=== PATIENT | male | born 2000 | race Two or more races ===

== ENCOUNTER 2025-05-15 11:46 | Inpatient (IN) ==
--- NOTE | 2025-05-15 11:58 | Emergency Department Note ---
Impression & Plan Depression with suicidal ideation ED Provider Note NAME: JANIA POND AGE: 24 SEX: M : 2000 ARRIVES VIA: [employer] INFORMANT: Patient, ED PROVIDER(S): Chi Nava MD CHIEF COMPLAINT: Mental wellness concern MEDICAL DECISION MAKING: Patient presents for the above. Blood work is obtained. Patient is cooperative. Patient is amenable to inpatient treatment. Patient is he medically cleared seen and evaluated by psych case management and the patient did have referrals made. Patient was signed out to Dr. Lomeli pending placement. Discussion w/ other healthcare providers: ED case management Prior /Outside records reviewed: none Differential diagnosis: Mood disorder, infection, hypoglycemia, electrolyte abnormalities, dehydration, medication side effect among others were considered. Diagnostics, as interpreted by me: ECG: None none Medical decision rules: None Imaging studies: None HPI: Patient presents due to concern for mental wellness concern. The patient reportedly does have some baseline depression that he does struggle with some days are "worse than others." Patient states that he had been drinking into Saturday and very early morning he gone to his grandmother's house and reportedly had gotten a gun and he did put a loaded rifle barrel in his mouth. The patient states that he had been thinking about harming himself. Patient reports that he did have a prior history of self-harm back in high school. He is not on any current medications and does not have any outpatient resources with regard to his mental illness. He denies tobacco or drug use. He states that his sleep and appetite have always been up and down but they have not been worse of late. He does admit to relationship and financial issues which may be contributory. He reports that he did start a new job recently which is going well. He does live with his fiance and does feel safe at home. No access to guns or weapons in his own home. He denies any HI or AVH. PAST MEDICAL HISTORY: Depression PAST SURGICAL HISTORY: No pertinent past surgical history SOCIAL HISTORY: See Below HOME MEDICATIONS: See Below ALLERGIES: See Below VITALS: See Below PHYSICAL EXAMINATION: GENERAL: NAD, non-toxic. EYE EXAM: Normal conjunctiva. PERRL, no anisocoria and EOM's grossly intact w/o pain. OROPHARYNX: Moist mucus membranes, grossly normal dentition. NECK: Trachea midline, no stridor. LUNGS: Clear to auscultation. Normal chest wall mechanics. HEART: NSR, no MRG. ABDOMEN: Abdomen soft, non-tender, no masses, no rebound or guarding. BACK: No CVA TTP. SKIN: No rashes and no bruising. UPPER EXTREMITIES: Upper extremities are grossly normal. LOWER EXTREMITIES: Grossly normal, no edema. NEURO EXAM: Awake and alert, follows commands, no obvious facial asymmetry, normal speech, moves all 4 extremities. Psych: Depressed mood, denies HI or AVH. Past Med/Surg History Problem List (Updated 05/16/25 @ 06:08 by Chi Nava MD) Depression with suicidal ideation (Acute) Social History Smoking Status: Never smoker Preferred Language: Kosovan Communication Ability: Effective Enrichment Director Required: No Beliefs That Will Affect Care: None Feels Safe at Home: Yes Gender Identity: Male Assistive Devices: Glasses Allergies Allergies Allergy/AdvReac Type Severity Reaction Status Date / Time No Known Allergies Allergy Unverified 05/15/25 18:31 Results & Data (ED) Vital Signs Vital Signs - 24 hr 05/15/25 11:55 05/15/25 11:55 05/15/25 14:25 Temperature 36.5 C 36.5 C Temperature Source Oral Oral Pulse Rate 77 Pulse Rate [Right Finger] 77 79 Respiratory Rate 18 18 18 Respiratory Effort / Characteristics Non-Labored Non-Labored Respiratory Depth Normal Normal Respiratory Pattern Regular Blood Pressure 133/77 Blood Pressure [Right Arm] 133/77 139/93 Blood Pressure Mean 95 Blood Pressure Mean [Right Arm] 95 108 Pulse Oximetry 99 99 100 Oxygen Delivery Method Room Air Room Air Room Air Sepsis Recent Fever Within 48 Hours No Sepsis New/Unexplained Change in Mental Status No Sepsis Action Taken by Nursing No Action Required 05/15/25 16:51 Temperature Temperature Source Pulse Rate Pulse Rate [Right Finger] 76 Respiratory Rate 18 Respiratory Effort / Characteristics Respiratory Depth Respiratory Pattern Blood Pressure Blood Pressure [Right Arm] 154/82 H Blood Pressure Mean Blood Pressure Mean [Right Arm] 106 Pulse Oximetry 100 Oxygen Delivery Method Room Air Sepsis Recent Fever Within 48 Hours Sepsis New/Unexplained Change in Mental Status Sepsis Action Taken by Intermediate Medications Current Medication List: was personally reviewed by me Laboratory Data Attestation: I reviewed the patient's lab results. 05/15/25 12:02 05/15/25 12:02 Lab Results 05/15/25 05/15/25 05/15/25 Range/Units 12:02 12:07 14:22 WBC 9.28 (4.8-10.8) K/ul RBC 5.99 (4.70-6.10) M/uL Hgb 18.1 H (14.0-18.0) g/dl Hct 54.5 H (42.0-52.0) % MCV 91.0 (80.0-100.0) fL MCH 30.2 (25.0-34.0) pg MCHC 33.2 (32.0-36.0) g/dL RDW Std Deviation 45.3 (36.4-46.3) fL RDW Coeff of Yessy 13.7 (11.5-14.5) % Plt Count 397 (130-400) K/uL MPV 9.8 (9.4-12.4) fL Immature Gran % (Auto) 0.3 % Neut % (Auto) 73.0 % Lymph % (Auto) 17.3 % Spencer % (Auto) 6.1 % Eos % (Auto) 2.4 % Baso % (Auto) 0.9 % Neut # (Auto) 6.77 H (1.40-6.50) K/uL Lymph # (Auto) 1.61 (1.20-3.40) K/uL Spencer # (Auto) 0.57 (0.11-0.59) K/uL Eos # (Auto) 0.22 (0.00-0.50) K/uL Baso # (Auto) 0.08 (0.00-0.20) K/uL Immature Gran # (Auto) 0.03 (0.01-0.20) K/uL Sodium 140 (136-145) mmol/L Potassium 4.3 (3.5-5.1) mmol/L Chloride 105 (98-107) mmol/L Carbon Dioxide 29 (21-32) mmol/L Anion Gap 6 (3-11) BUN 12 (6-23) mg/dl Creatinine 0.91 (0.6-1.4) mg/dl Est Cr Clr Drug Dosing 136.6 ml/min eGFR 121.45 BUN/Creatinine Ratio 13.2 (10-20) Glucose 91 (70-99(Fasting)) mg/dl Calcium 9.7 (8.6-10.3) mg/dl Total Bilirubin 0.6 (0.2-1.0) mg/dl AST 17 (13-39) U/L ALT 16 (7-52) U/L Alkaline Phosphatase 74 (34-104) U/L Total Protein 8.1 (6.0-8.3) gm/dl Albumin 5.1 H (3.4-5.0) gm/dl Globulin 3.0 (2.5-4.0) gm/dl Albumin/Globulin Ratio 1.7 (0.9-2) TSH 0.933 (0.300-4.500) uIu/ml Urine Color Yellow Urine Appearance Clear (Clear) Urine pH 5.5 (4.5-7.5) Ur Specific [place] 1.005 (1.000-1.030) Urine Protein Negative (Negative) Urine Glucose (UA) Negative (Negative) Urine Ketones Negative (Negative) Urine Blood Negative (Negative) Urine Nitrite Negative (Negative) Urine Bilirubin Negative (Negative) Urine Urobilinogen Negative (Negative) Ur Leukocyte Esterase Negative (Negative) Urine Comment Salicylates < 3.0 L (3.0-30) mg/dl Urine Opiates Screen Neg (Neg) Ur Methadone, Qual Neg (Neg) Urine Fentanyl Screen Neg (Neg) Acetaminophen < 3 L (10-30) ug/ml Urine Barbiturates Neg (Neg) Ur Phencyclidine (PCP) Neg (Neg) U Amphetamin/Meth Scrn Neg (Neg) MDMA (Ecstasy) Screen Neg (Neg) U Benzodiazepines Scrn Neg (Neg) Ur Cocaine Metabolite Neg (Neg) U Marijuana (THC) Screen Neg (Neg) Ethyl Alcohol mg/dL < 10.0 (<10.0) mg/dl SARS-CoV-2, RNA, NAAT NEGATIVE (NEGATIVE) Discharge Plan Visit Data Chief Complaint: Mental Health Evaluation Stated Complaint: [facility] ED Provider: Chi Nava Discharge Problem: Depression with suicidal ideation Patient Disposition: Admitted As Inpatient Condition: Good Discharge Instructions Interventions: ED Discharge Assessment Last Done: 05/15/25 18:13
[2025-05-15 12:22] LABS: Hematocrit (blood only) 54.5 % (42.0-52.0); Hemoglobin 18.1 g/dl (14.0-18.0); Immature Granulocytes # (auto) 0.03 K/uL (0.01-0.20); Immature Granulocytes % (auto) 0.3 %; Mean Corpuscular Hemoglobin 30.2 pg (25.0-34.0); Mean Corpuscular Volume 91.0 fL (80.0-100.0); Platelet Count 397 K/uL (130-400); RDW Standard Deviation 45.3 fL (36.4-46.3); Red Blood Count 5.99 M/uL (4.70-6.10); White Blood Count 9.28 K/ul (4.8-10.8)
[2025-05-15 12:40] LABS: Alanine Aminotransferase 16.0 U/L (7-52); Albumin Globulin Ratio 1.7 (0.9-2); Albumin Level 5.1 gm/dl (3.4-5.0); Alkaline Phosphatase 74.0 U/L (34-104); Anion Gap 6.0 (3-11); Bilirubin,Total 0.6 mg/dl (0.2-1.0); Blood Urea Nitrogen 12.0 mg/dl (6-23); Calcium 9.7 mg/dl (8.6-10.3); Carbon Dioxide 29.0 mmol/L (21-32); Chloride 105.0 mmol/L (98-107); Creatinine Clr Calc Pharmacy 136.6 ml/min; Globulin 3.0 gm/dl (2.5-4.0); Glucose 91.0 mg/dl (70-99(Fasting)); Potassium 4.3 mmol/L (3.5-5.1); Sodium 140.0 mmol/L (136-145); Total Protein 8.1 gm/dl (6.0-8.3)
[2025-05-15 12:49] LABS: Acetaminophen < 3 ug/ml (10-30); Salicylate < 3.0 mg/dl (3.0-30)
[2025-05-15 12:54] LABS: Thyroid Stimulating Hormone 0.933 uIu/ml (0.300-4.500)
[2025-05-15 14:33] LABS: Appearance Urine Clear (Clear); Glucose Urine UA Negative (Negative)
--- NOTE | 2025-05-15 15:06 | Emergency Department Note ---
ED Visit Note I assumed care at the change of shift. The patient had been medically cleared. He was a voluntary psychiatric admission. He had presented with suicidal ideation. A bed search was underway. Patient was seen by 3 S[facility] our psychiatry services here at [facility]. He has been accepted to their floor. The appropriate paperwork was completed and signed. He will be admitted to the psychiatric services voluntarily. .
[2025-05-15 15:18] LABS: Amphetamines+Metham, Urine Neg (Neg); MDMA (Ecstacy), Urine Neg (Neg); Marijuana, Urine Neg (Neg)
[2025-05-15] MEDS ORDERED: MAGNESIUM HYDROXIDE SUSP 30 ML UDC PO PRN (18:31)
[2025-05-15] MEDS ORDERED: BISMUTH SUBSALICYLATE 262 MG CHEW PO PRN (18:31)
[2025-05-15] MEDS ORDERED: SODIUM CHLORIDE 0.65% NA SOLN 45 ML (OCEAN) PRN (18:31)
[2025-05-15] MEDS ORDERED: ACETAMINOPHEN 325 MG TAB PO PRN (18:31)
[2025-05-15] MEDS ORDERED: ALUMINUM/MAGNESIUM SUSP 30 ML UDC PO PRN (18:31)
--- NOTE | 2025-05-16 08:39 | History & Physical ---
Date of Service May 16, 2025 Impression / Recommendations Impression JANIA POND is a 24-year-old man who currently lives in [place] with his fiance, step-child (3) and step-child's father has a history of depression, anxiety, self-harm, and was admitted on 05/15/25 18:27 on a 201 voluntary commitment for interrupted suicide attempt via gun. Diagnostically consistent with major depressive disorder with suicidal ideation following recent interrupted suicide attempt, likely borderline personality disorder and substance use involving alcohol and nicotine in the context of relationship stressors and compulsive lying behaviors and previous excessive pornography use. Discussed medication treatment options in detail. Discussed risks, benefits and alternatives. Patient would like to start and consented to Wellbutrin for depression and nicotine use disorder. Reviewed side effects including but not limited to: insomnia, decreased appetite, lowered seizure threshold. Psychoeducation provided regarding mood disorders and borderline personality disorder. Discharge planning to include psychotherapy referral and consider case management referral for financial resources and support and primary care follow- up for ongoing eczema management as well as possible sleep study evaluation for sleep apnea given his report of chronic restless sleep . Overall I spent a total of 85 minutes for this admission including review of chart records, review of labwork, direct evaluation of the patient, counseling the patient, ordering medication, risk assessment, discussion with the psychiatric liason RN and documentation in the electronic health record. 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, unspecified: (4) Impulsiveness: (5) Eczema: Plan 05/16/2025: The patient was admitted to the [facility] ([facility]) on q15 min checks (behavioral with suicide precautions) for safety. The patient will participate in group, recreational, and milieu therapies and will be offered additional individual and family sessions as clinically appropriate. -Start Wellbutrin 150mg daily -Provided with symptom questionnaires: PHQ, MIHIR, MDQ, Rodney BPD Inventory Assets Strengths: supportive relationships, willing to get treatment Needs: safety and stabilization, medication adjustment, additional coping skills, increased outpatient services Suicide Risk Level Suicide Risk Level: High-Moderate (q15 min suicide checks) (interrupted suicide attempt but SI lessening and feels safe in the hospital and feels able to ask for support) Risk Factors Assessment Male: Yes Do You Have Access To A Gun?: Yes (had accessed guns at grandmother's home, need to confirm now secured) Health Problems: No Mental Health Diagnoses: Yes Substance Use Disorders: No Previous Attempt: Yes Family History of Suicide: No Previous Psychiatric Hospitalization: No Hopelessness: Yes Protective Factors Assessment Responsible for Young Children: Yes Employed: Yes Stable Relationships: Yes Supportive Family: Yes Good Rapport with Provider: Yes Psychiatric History Identifying Data JANIA POND is a 24-year-old man who currently lives in [place] with his fiance, step-child (3) and step-child's father has a history of depression, anxiety, self-harm, and was admitted on 05/15/25 18:27 on a 201 voluntary commitment for interrupted suicide attempt via gun. Chief Complaint "I want to live this life as best as I can but how we make it out of this is tricky". History of Present Illness Jania presents for psychiatric admission for worsening depression and interrupted suicide attempt of shooting himself with a gun in the context of multiple psychosocial stressors including relationship and financial issues. He drove to his grandmothers home to gain access to guns and discharged the gun to ensure it was working before placing it in his mouth. His grandmother found him with the gun in his mouth and called police. [facility] due to endangerment of others from setting off the gun before attempting to use it on himself. He was then [facility] for further evaluation of his suicidality. He reports struggling with mood fluctuations throughout his life describing periods where he feels "15 out of 10 happy" and "perfect" followed by crashes where he becomes "really low". These mood shifts can occur within the same day and are often triggered by external events particularly relationship conflicts. 2 days prior to admission Jania experienced a significant low mood following ongoing relationship problems with his fiance. He describes feeling "numb" the morning of the incident of the interrupted attempt and has limited memory of the events recalling only "flashes" of driving to his grandmother's house. He recalls "I had gotten into a pretty low place". He notes it's all "a bit of a blur" and "the only thing I vividly remember is loading the gun". He vividly remembers loading a gun and was found by his grandmother with a gun in his mouth. He denies that alcohol contributed to his memory gaps noting he had consumed 3 tallboy beers the night before but it had been 9 hours without drinking before the incident occurred. Jania reports significant relationship to stress as the primary precipitant to this crisis. He describes lying to his fiance about his past, including previous relationships and sexual encounters, as well as struggling with what he characterizes as a "very bad porn addiction" in the past prior to starting his relationship with her. He expresses genuine love for his fiance and her 3-year-old child but reports constant worry that she will leave him. He describes himself as a "compulsive" or "pathological liar" and acknowledges having "misconstrued understanding" of healthy sexual relationships due to his past pornography use. He notes "I've been making poor decisions" in regards to his relationship and he states he'd lied about things in his past before they started dating. When she caught him in these lies he "spiraled". He deeply loves his partner and yet "I wanted to be with her so bad I didn't want her to know about everything in my past". He wants to have a healthy relationship but often gets caught up in worries that she'll leave him. 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 He is also now acquired felony charges including operation of a firearm in unoccupied residence, reckless endangerment due to setting off the gun and criminal mischief from breaking into his grandmother's gun safe. He notes he his fiance and her child were already struggling before this crisis and he suspects now will be worse. This does cause some hopelessness and helplessness but he wants to continue living and to move forward. He acknowledges feeling overwhelmed by his current circumstances. He identifies target symptoms as: working on his "compulsive liar, pathological liar" and "very bad issues with lying" and "spin a story that's better for me", that's something he wants to work on and improve for the sake of his relationship and "I want to figure out what my problems are with sex and the idea of it" and "what's wrong with my brain, I struggle with it a lot, the self- doubt, that spirals pretty bad". He has periods of depression but it's pretty "moment to moment" in terms of his mood. He's always struggled to wake up in the morning and has always struggled with sleep. He can fall asleep easily but always feels exhausted when he wakes up. He notes "I don't want to be right now but I've also come to realize what I've done and I know the process that it's going to be and it's a hard pill to swallow". He is not currently prescribed any psychiatric medications. 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 No history or current history psychosis, PTSD, OCD. History of restrictive eating in the past, self-harm via punching himself in highschool-last about 5 years ago. Previous struggled with porn addiction. Past Psychiatric History Current Psychiatric Diagnosis: unspecified depression with mood lability Outpatient Services: none Previous Psych Admissions: none Do You Have Access To A Gun?: Yes (had accessed guns at grandmother's home, need to confirm now secured) History of Previous Suicide Attempt: Yes Describe Attempts in the Past: near overdose of prescribed medication in highschool, spit them out Past Medication Trials: Zoloft (100mg)-stopped after 6 months of taking it, never found much benefit Past Head Trauma/Neuro History History of Concussion/Seizure: No Allergies Allergy/AdvReac Type Severity Reaction Status Date / Time No Known Allergies Allergy Unverified 05/15/25 18:31 Family History Family History of: Depression (sister) and Other-List under Comment (sister with ADHD, sister with self-harm) Alcohol History Hx of Alcohol Use Over the Past 12 Months: Yes (couple times per month) AUDIT Total Score: 4 Smoking Use Have You Smoked or Used Tobacco Products in the Last 30 Days: No Smoking Status: Current every day smoker (nicotine pouches 6mg (5- 10 a day)) Substance History Hx of Prescription Med Misuse Over the Past 12 Months: No Hx of Over the Counter Med Misuse Over the Past 12 Months: No Hx of Inhalent Misuse Over the Past 12 Months: No Hx of Organic Substance Use Over the Past 12 Months: No Hx of Illegal Substances/Street Drug Use Over Past 12 Months: No Problems as a Result of Past Substance Use: None Identified Personal History Living Arrangements: Apartment Highest Grade Completed: High School Graduate Employment Status: Unemployed (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 Other Number Of Children: step-child age 3 Beliefs That Will Affect Care: None Current Legal Problems: Yes (charge of operation of a firearm, criminal mischief for breaking into gun s) Hx Legal Problems: No Hx Traumatic Life Events: No Patient History Social History Smoking Status: Current every day smoker (nicotine pouches 6mg (5- 10 a day)) Preferred Language: Upper Sorbian Communication Ability: Effective Tapper Helper Required: No Beliefs That Will Affect Care: None Feels Safe at Home: Yes Gender Identity: Male Assistive Devices: Glasses Review of Systems Review of Systems: All systems reviewed & are unremarkable except as noted in HPI & below (itchy from eczema, knee soreness) Physical Exam Psychiatric: Orientation: alert and oriented x 3 Apperance: appropriately dressed and appropriately groomed Eye Contact: good eye contact Motor Behavior: no abnormal motor movements Speech: normal rate/rhythm/volume of speech Affect: + depressed affect and + anxious affect Mood: + depressed mood and + anxious mood Thought Process: goal directed thought process Thought Content: reality based without delusions Suicidal Thoughts: denies suicidal plan (but interrupted suicide attempt from using gun) and denies suicidal intent; + reports suicidal thoughts (intermittent) Homicidal Thoughts: denies homicidal thoughts Hallucinations: no auditory hallucinations and no visual hallucinations Cognition: recent memory grossly intact, remote memory grossly intact, attention grossly intact and language grossly intact Estimated Intelligence: consistent with education level Insight: + fair insight Judgment: + fair judgement Vital Signs (Past 24 Hours): Last Vital Signs Temp 37.4 C 05/16/25 06:00 Pulse 72 05/16/25 06:00 Resp 18 05/16/25 06:00 BP 118/76 05/16/25 06:00 Pulse Ox 98 05/16/25 06:00 O2 Del Method Room Air 05/16/25 06:00 Exam Statement: A physical exam was performed in the ED by Dr. Nava for the purposes of medical clearance. I accept that physical as correct and adequate for the purposes of the inpatient physical exam. Results & Data ([facility]) Laboratory Results Laboratory Results - last 24 hr 05/15/25 05/15/25 05/15/25 12:02 12:07 14:22 WBC 9.28 RBC 5.99 Hgb 18.1 H Hct 54.5 H MCV 91.0 MCH 30.2 MCHC 33.2 RDW Std Deviation 45.3 RDW Coeff of Yessy 13.7 Plt Count 397 MPV 9.8 Immature Gran % (Auto) 0.3 Neut % (Auto) 73.0 Lymph % (Auto) 17.3 Sully % (Auto) 6.1 Eos % (Auto) 2.4 Baso % (Auto) 0.9 Neut # (Auto) 6.77 H Lymph # (Auto) 1.61 Sully # (Auto) 0.57 Eos # (Auto) 0.22 Baso # (Auto) 0.08 Immature Gran # (Auto) 0.03 Sodium 140 Potassium 4.3 Chloride 105 Carbon Dioxide 29 Anion Gap 6 BUN 12 Creatinine 0.91 Est Cr Clr Drug Dosing 136.6 eGFR 121.45 BUN/Creatinine Ratio 13.2 Glucose 91 Calcium 9.7 Total Bilirubin 0.6 AST 17 ALT 16 Alkaline Phosphatase 74 Total Protein 8.1 Albumin 5.1 H Globulin 3.0 Albumin/Globulin Ratio 1.7 TSH 0.933 Urine Color Yellow Urine Appearance Clear Urine pH 5.5 Ur Specific [place] 1.005 Urine Protein Negative Urine Glucose (UA) Negative Urine Ketones Negative Urine Blood Negative Urine Nitrite Negative Urine Bilirubin Negative Urine Urobilinogen Negative Ur Leukocyte Esterase Negative Urine Comment Salicylates < 3.0 L Urine Opiates Screen Neg Ur Methadone, Qual Neg Urine Fentanyl Screen Neg Acetaminophen < 3 L Urine Barbiturates Neg Ur Phencyclidine (PCP) Neg U Amphetamin/Meth Scrn Neg MDMA (Ecstasy) Screen Neg U Benzodiazepines Scrn Neg Ur Cocaine Metabolite Neg U Marijuana (THC) Screen Neg Ethyl Alcohol mg/dL < 10.0 SARS-CoV-2, RNA, NAAT NEGATIVE Current Inpatient Medications Current Inpatient Medications: Current Inpatient Medications Acetaminophen (Acetaminophen 325 Mg Tab) 650 mg PO Q4H PRN PRN Reason: Headache or Minor Fever Stop: 06/14/25 18:30 Al Hydrox/Mg Hydrox/Simethicone (Aluminum/Magnesium Susp 30 Ml Udc) 30 ml PO Q4H PRN PRN Reason: GI Upset Stop: 06/14/25 18:30 Bismuth Subsalicylate (Bismuth Subsalicylate 262 Mg Chew) 2 tab PO Q30M PRN PRN Reason: Loose Stool/Diarrhea Stop: 06/14/25 18:30 Hydroxyzine HCl (Hydroxyzine Hcl 25 Mg Tab) 50 mg PO HSZ PRN PRN Reason: Insomnia Stop: 06/14/25 18:30 Hydroxyzine HCl (Hydroxyzine Hcl 25 Mg Tab) 25 mg PO Q4H PRN PRN Reason: Anxiety Stop: 06/14/25 18:30 Magnesium Hydroxide (Magnesium Hydroxide Susp 30 Ml Udc) 30 ml PO DAILY PRN PRN Reason: Constipation Stop: 06/14/25 18:30 Sodium Chloride (Sodium Chloride 0.65% Na Soln 45 Ml ([place])) 1 - 2 sprays NA PRN PRN PRN Reason: Nasal Dryness/Congestion Stop: 06/14/25 18:30
[2025-05-16] MEDS ORDERED: diphenhydrAMINE 2%/ZINC 0.1% CREAM 28.4GM TUBE EXT PRN (11:10)
[2025-05-16] MEDS: NICOTINE 21 MG/24 HR TDSY TD SCH (11:31)
[2025-05-16] MEDS: EUCERIN CR 120 GM JAR EXT PRN (12:00)
[2025-05-16] MEDS: REMOVE NICODERM PATCH SCH (21:14)
[2025-05-17] MEDS: NICOTINE POLACRILEX 2 MG GUM MT PRN (06:27)
--- NOTE | 2025-05-17 08:48 | Psychiatric Progress Note ---
Date of Service May 17, 2025 Impression / Recommendations Impression JANIA POND is a 24-year-old man who currently lives in [place] with his fiance, step-child (3) and step-child's father has a history of depression, anxiety, self-harm, and was admitted on 05/15/25 18:27 on a 201 voluntary commitment for interrupted suicide attempt via gun. Diagnostically consistent with major depressive disorder with suicidal ideation following recent interrupted suicide attempt, likely borderline personality disorder and substance use involving alcohol and nicotine in the context of relationship stressors and compulsive lying behaviors and previous excessive pornography use. A: Ongoing depression and anxiety but feels a little bit more energized from the Wellbutrin. Discussed medication treatment options and he consents to trial of clonidine as off-label use for impulsivity, sleep, anxiety. Reviewed side effects including but not limited to: sedation, low BP, syncope. Provided psychoeducation about BPD and DBT. Symptom questionnaires reviewed and notable for positive Rodney, PHQ-9 score of 17, MIHIR-7 score of: 16. He consents to and would like me to provide a letter stating he is hospitalized and diagnosis to the court in effort to have his hearing rescheduled due to his need for ongoing psychiatric hospitalization. Overall, I spent a total of 35 minutes on this case including meeting with the patient, reviewing the chart, nursing report, multidisciplinary team meeting, orders, and documentation. 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 The patient will participate in group, recreational, and milieu therapies and will be offered additional individual and family sessions as clinically appropriate. -Start Wellbutrin 150mg daily -Provided with symptom questionnaires: PHQ, MIHIR, MDQ, Rodney BPD Inventory Assets Strengths: supportive relationships, willing to get treatment Needs: safety and stabilization, medication adjustment, additional coping skills, increased outpatient services Suicide Risk Level Suicide Risk Level: High-Moderate (q15 min suicide checks) (interrupted suicide attempt but SI lessening and feels safe in the hospital and feels able to ask for support) Risk Factors Assessment Male: Yes Do You Have Access To A Gun?: No Health Problems: No Mental Health Diagnoses: Yes Substance Use Disorders: No Previous Attempt: Yes Family History of Suicide: No Previous Psychiatric Hospitalization: No Hopelessness: Yes Protective Factors Assessment Responsible for Young Children: Yes Employed: Yes Stable Relationships: Yes Supportive Family: Yes Good Rapport with Provider: Yes Interval History Identifying Information JANIA POND is a 24-year-old man who currently lives in [place] with his fiance, step-child (3) and step-child's father has a history of depression, anxiety, self-harm, and was admitted on 05/15/25 18:27 on a 201 voluntary commitment for interrupted suicide attempt via gun. Chief Complaint "Doing alright". Review of Systems Sleep Information Total Hours of Sleep: 6.25 Meal Information Percent Meal Consumed - Breakfast: 100 Percent Meal Consumed - Lunch: 100 Percent Meal Consumed - Dinner: 100 Subjective Subjective Patient was seen & assessed and interval progress reviewed with treatment team. Attending groups and participating. Today reports his mood is "alright" but has periods of intense sadness in missing his fiance and step-child. He reflects on the suicide attempt being impulsive despite him joking earlier in the month about attempting by using a gun. He feels that was part of his dark humor and continues to feel the attempt was impulsive. Tolerating Wellbutrin so far, no increased anxiety. Reviewed symptom questionnaires and discussed BPD. Physical Exam Psychiatric Orientation: alert and oriented x 3 Apperance: appropriately dressed and appropriately groomed Eye Contact: good eye contact Motor Behavior: no abnormal motor movements Speech: normal rate/rhythm/volume of speech Affect: + depressed affect Mood: + depressed mood and + anxious mood Thought Process: goal directed thought process Thought Content: reality based without delusions Suicidal Thoughts: denies suicidal plan (but interrupted suicide attempt from using gun) and denies suicidal intent; + reports suicidal thoughts (intermittent) Homicidal Thoughts: denies homicidal thoughts Hallucinations: no auditory hallucinations and no visual hallucinations Cognition: recent memory grossly intact, remote memory grossly intact, attention grossly intact and language grossly intact Estimated Intelligence: consistent with education level Insight: + fair insight Judgment: + fair judgement Vital Signs (Past 24 Hours) Last Vital Signs Temp 36.4 C 05/17/25 06:00 Pulse 62 10/13/25 06:25 Resp 18 05/17/25 06:00 BP 117/84 05/17/25 06:25 Pulse Ox 96 05/17/25 06:00 O2 Del Method Room Air 05/17/25 06:00 Results & Data ([facility]) Current Inpatient Medications Current Inpatient Medications: Current Inpatient Medications Acetaminophen (Acetaminophen 325 Mg Tab) 650 mg PO Q4H PRN PRN Reason: Headache or Minor Fever Stop: 06/14/25 18:30 Al Hydrox/Mg Hydrox/Simethicone (Aluminum/Magnesium Susp 30 Ml Udc) 30 ml PO Q4H PRN PRN Reason: GI Upset Stop: 06/14/25 18:30 Bismuth Subsalicylate (Bismuth Subsalicylate 262 Mg Chew) 2 tab PO Q30M PRN PRN Reason: Loose Stool/Diarrhea Stop: 06/14/25 18:30 Bupropion HCl (Bupropion Xl 150 Mg Tabcr) 150 mg PO QAM [facility] Stop: 06/15/25 11:14 Last Admin: 05/17/25 08:34 Dose: 150 mg Hydroxyzine HCl (Hydroxyzine Hcl 25 Mg Tab) 50 mg PO HSZ PRN PRN Reason: Insomnia Stop: 06/14/25 18:30 Hydroxyzine HCl (Hydroxyzine Hcl 25 Mg Tab) 25 mg PO Q4H PRN PRN Reason: Anxiety Stop: 06/14/25 18:30 Magnesium Hydroxide (Magnesium Hydroxide Susp 30 Ml Udc) 30 ml PO DAILY PRN PRN Reason: Constipation Stop: 06/14/25 18:30 Miscellaneous (Remove Nicoderm Patch) 1 each N/A DAILY@2100 [facility] Stop: 06/15/25 20:59 Last Admin: 05/16/25 21:14 Dose: Not Given Multi-Ingredient Cream (Eucerin Cr 120 Gm Jar) 1 appln EXT TID PRN PRN Reason: eczema Stop: 06/15/25 11:09 Last Admin: 05/16/25 22:28 Dose: 1 appln Nicotine (Nicotine 21 Mg/24 Hr Tdsy) 1 patch TD QAM [facility] Stop: 06/15/25 11:29 Last Admin: 05/17/25 08:35 Dose: Not Given Nicotine Polacrilex (Nicotine Polacrilex 2 Mg Gum) 1 piece MT Q2H PRN PRN Reason: nicotine cravings Stop: 06/15/25 11:15 Last Admin: 05/17/25 06:27 Dose: 1 piece Sodium Chloride (Sodium Chloride 0.65% Na Soln 45 Ml ([place])) 1 - 2 sprays NA PRN PRN PRN Reason: Nasal Dryness/Congestion Stop: 06/14/25 18:30 Zinc Acetate/Diphenhydramine (Diphenhydramine 2%/Zinc 0.1% Cream 28.4gm Tube) 1 appln EXT BID PRN PRN Reason: itchiness Stop: 06/15/25 11:09
[2025-05-17] MEDS ORDERED: REMOVE NICODERM PATCH SCH (08:59)
--- NOTE | 2025-05-18 08:46 | Psychiatric Progress Note ---
Date of Service May 18, 2025 Impression / Recommendations Impression JANIA POND is a 24-year-old man who currently lives in [place] with his fiance, step-child (3) and step-child's father has a history of depression, anxiety, self-harm, and was admitted on 05/15/25 18:27 on a 201 voluntary commitment for interrupted suicide attempt via gun. Diagnostically consistent with major depressive disorder with suicidal ideation following recent interrupted suicide attempt, likely borderline personality disorder and substance use involving alcohol and nicotine in the context of relationship stressors and compulsive lying behaviors and previous excessive pornography use. A: Ongoing depression and anxiety but mood improving. Reflected on role of his self-hatred and low self worth on his near suicide attempt. Ongoing stress from scheduled court hearing tomorrow, he is hopeful public relations manager can waive his appearance. He'd like to continue with the medications at the current doses, likes the current treatment plan. Overall, I spent a total of 38 minutes on this case including meeting with the patient, reviewing the chart, nursing report, multidisciplinary team meeting, orders, and documentation. 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 The patient will participate in group, recreational, and milieu therapies and will be offered additional individual and family sessions as clinically appropriate. -Start Wellbutrin 150mg daily -Provided with symptom questionnaires: PHQ, MIHIR, MDQ, Rodney BPD Inventory Assets Strengths: supportive relationships, willing to get treatment Needs: safety and stabilization, medication adjustment, additional coping skills, increased outpatient services Suicide Risk Level Suicide Risk Level: High-Moderate (q15 min suicide checks) (interrupted suicide attempt but SI lessening and feels safe in the hospital and feels able to ask for support) Risk Factors Assessment Male: Yes Do You Have Access To A Gun?: No Health Problems: No Mental Health Diagnoses: Yes Substance Use Disorders: No Previous Attempt: Yes Family History of Suicide: No Previous Psychiatric Hospitalization: No Hopelessness: Yes Protective Factors Assessment Responsible for Young Children: Yes Employed: Yes Stable Relationships: Yes Supportive Family: Yes Good Rapport with Provider: Yes Interval History Identifying Information JANIA POND is a 24-year-old man who currently lives in [place] with his fiance, step-child (3) and step-child's father has a history of depression, anxiety, self-harm, and was admitted on 05/15/25 18:27 on a 201 voluntary commitment for interrupted suicide attempt via gun. Chief Complaint "Doing alright, a little on edge because of the court stuff". Review of Systems Sleep Information Total Hours of Sleep: 6 Meal Information Percent Meal Consumed - Breakfast: 100 Percent Meal Consumed - Lunch: 100 Percent Meal Consumed - Dinner: 100 Subjective Subjective Patient was seen & assessed and interval progress reviewed with nursing and social work. Attending groups, rated his mood as "understanding". Today rates his mood as "alright". had some increased anxiety about needing to get in touch with his pubic defender but feels calmer by mid-day. He continues to find the Wellbutrin helpful and denies any side effects. Discussed potential to consider SSRI as alternative or augmentation if he feels anxiety is an issue but he feels his depression and anxiety are improving with the Wellbutrin. He also found the clonidine helped him fall asleep. Processed some of the strained relationships he has with his mother, grandmother and sisters. Discussed his spiritual beliefs and he doesn't feel this played a role in his attempt. He processed that the attempt seems to have been driven by his self-hatred for himself, not from any external factors. he wants to work on finding more compassion for himself. Physical Exam Psychiatric Orientation: alert and oriented x 3 Apperance: appropriately dressed and appropriately groomed Eye Contact: good eye contact Motor Behavior: no abnormal motor movements Speech: normal rate/rhythm/volume of speech Affect: + depressed affect Mood: + depressed mood and + anxious mood Thought Process: goal directed thought process Thought Content: reality based without delusions Suicidal Thoughts: denies suicidal plan (but interrupted suicide attempt from using gun) and denies suicidal intent; + reports suicidal thoughts (intermittent) Homicidal Thoughts: denies homicidal thoughts Hallucinations: no auditory hallucinations and no visual hallucinations Cognition: recent memory grossly intact, remote memory grossly intact, attention grossly intact and language grossly intact Estimated Intelligence: consistent with education level Insight: + fair insight Judgment: + fair judgement Vital Signs (Past 24 Hours) Last Vital Signs Temp 36.1 C L 05/18/25 06:38 Pulse 79 05/18/25 06:38 Resp 16 05/18/25 06:38 BP 119/78 05/18/25 06:38 Pulse Ox 100 05/18/25 06:38 O2 Del Method Room Air 05/18/25 06:38 Results & Data ([facility]) Current Inpatient Medications Current Inpatient Medications: Current Inpatient Medications Acetaminophen (Acetaminophen 325 Mg Tab) 650 mg PO Q4H PRN PRN Reason: Headache or Minor Fever Stop: 06/14/25 18:30 Al Hydrox/Mg Hydrox/Simethicone (Aluminum/Magnesium Susp 30 Ml Udc) 30 ml PO Q4H PRN PRN Reason: GI Upset Stop: 06/14/25 18:30 Bismuth Subsalicylate (Bismuth Subsalicylate 262 Mg Chew) 2 tab PO Q30M PRN PRN Reason: Loose Stool/Diarrhea Stop: 06/14/25 18:30 Bupropion HCl (Bupropion Xl 150 Mg Tabcr) 150 mg PO QAM [facility] Stop: 06/15/25 11:14 Last Admin: 05/17/25 08:34 Dose: 150 mg Clonidine HCl (Clonidine Hcl 0.1 Mg Tab) 0.1 mg PO HS [facility] Stop: 06/16/25 21:59 Last Admin: 05/17/25 22:11 Dose: 0.1 mg Hydroxyzine HCl (Hydroxyzine Hcl 25 Mg Tab) 50 mg PO HSZ PRN PRN Reason: Insomnia Stop: 06/14/25 18:30 Hydroxyzine HCl (Hydroxyzine Hcl 25 Mg Tab) 25 mg PO Q4H PRN PRN Reason: Anxiety Stop: 06/14/25 18:30 Magnesium Hydroxide (Magnesium Hydroxide Susp 30 Ml Udc) 30 ml PO DAILY PRN PRN Reason: Constipation Stop: 06/14/25 18:30 Miscellaneous (Remove Nicoderm Patch) 1 each N/A DAILY@2100 [facility] Stop: 06/15/25 20:59 Last Admin: 05/17/25 22:11 Dose: Not Given Multi-Ingredient Cream (Eucerin Cr 120 Gm Jar) 1 appln EXT TID PRN PRN Reason: eczema Stop: 06/15/25 11:09 Last Admin: 05/18/25 08:35 Dose: 1 appln Nicotine (Nicotine 21 Mg/24 Hr Tdsy) 1 patch TD QAM [facility] Stop: 06/15/25 11:29 Last Admin: 05/17/25 08:35 Dose: Not Given Nicotine Polacrilex (Nicotine Polacrilex 2 Mg Gum) 1 piece MT Q2H PRN PRN Reason: nicotine cravings Stop: 06/15/25 11:15 Last Admin: 05/18/25 06:38 Dose: 1 piece Sodium Chloride (Sodium Chloride 0.65% Na Soln 45 Ml ([place])) 1 - 2 sprays NA PRN PRN PRN Reason: Nasal Dryness/Congestion Stop: 06/14/25 18:30 Zinc Acetate/Diphenhydramine (Diphenhydramine 2%/Zinc 0.1% Cream 28.4gm Tube) 1 appln EXT BID PRN PRN Reason: itchiness Stop: 06/15/25 11:09
--- NOTE | 2025-05-19 09:03 | Psychiatric Progress Note ---
Date of Service May 19, 2025 Impression / Recommendations Impression JANIA POND is a 24-year-old man who currently lives in [place] with his fiance, step-child (3) and step-child's father has a history of depression, anxiety, self-harm, and was admitted on 05/15/25 18:27 on a 201 voluntary commitment for interrupted suicide attempt via gun. Diagnostically consistent with major depressive disorder with suicidal ideation following recent interrupted suicide attempt, likely borderline personality disorder and substance use involving alcohol and nicotine in the context of relationship stressors and compulsive lying behaviors and previous excessive pornography use. A: Mood gradually improving though slightly more depressed this morning due to worries about court hearing and process that will begin for his legal charges. However, he is able to reflect on things that lead to his attempt and what has shifted for him since then and rates his wish to live as the highest possible and wish to as lowest possible. Given some sedation this morning that could have been due to clonidine, we discussed alternative medications to help with sleep. He consents to trazodone, reviewed side effects including but not limited to: sedation, increased appetite. Ongoing titration of Wellbutrin to target fatigue and depression. Some psychotherapy strategies discussed to help with potential self-hatred in the future, currently this is lessening. Overall, I spent a total of 42 minutes on this case including meeting with the patient, reviewing the chart, nursing report, multidisciplinary team meeting, orders, and documentation. 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 The patient will participate in group, recreational, and milieu therapies and will be offered additional individual and family sessions as clinically appropriate. -Start Wellbutrin 150mg daily -Provided with symptom questionnaires: PHQ, MIHIR, MDQ, Rodney BPD Inventory Assets Strengths: supportive relationships, willing to get treatment Needs: safety and stabilization, medication adjustment, additional coping skills, increased outpatient services Suicide Risk Level Suicide Risk Level: Moderate (q15 min suicide checks) (interrupted suicide attempt but mood improving, denies current SI and feels safe in the hospital and feels able to ask for support) Risk Factors Assessment Male: Yes Do You Have Access To A Gun?: No Health Problems: No Mental Health Diagnoses: Yes Substance Use Disorders: No Previous Attempt: Yes Family History of Suicide: No Previous Psychiatric Hospitalization: No Hopelessness: Yes Protective Factors Assessment Responsible for Young Children: Yes Employed: Yes Stable Relationships: Yes Supportive Family: Yes Good Rapport with Provider: Yes Interval History Identifying Information JANIA POND is a 24-year-old man who currently lives in [place] with his fiance, step-child (3) and step-child's father has a history of depression, anxiety, self-harm, and was admitted on 05/15/25 18:27 on a 201 voluntary commitment for interrupted suicide attempt via gun. Chief Complaint "Homesick". Review of Systems Sleep Information Total Hours of Sleep: 6.5 Meal Information Percent Meal Consumed - Breakfast: 100 Percent Meal Consumed - Lunch: 100 Percent Meal Consumed - Dinner: 100 Subjective Subjective Patient was seen & assessed and interval progress reviewed with treatment team. Attending groups. Rated his mood as "optimistic". Had a positive visit with his family. Today woke up feeling groggy and tired despite Wellbutrin. He finds he's typically tired when he has big emotions and was feeling more depressed this morning with being homesick and anticipation of court hearing. His appearance was waived which he is relieved about and he now has a new leach tank tender and feels supported in process ahead to charges related to his suicide attempt. Discussed option to trial trazodone instead of clonidine which he'd like to try in case some of the fatigue is from clonidine. He'd like to try higher dose of Wellbutrin. He denies SI. We discussed CAMS and he rates his wish to live as 8/8 (very much) and his wish to as 0/8 (not at all). He describes that he wants to live and plans to work on reducing his self-hatred and lying as this when he often spirals and starts to feel more depressed. We discussed strategies to improve his self-compassion and help with these thought spirals including some CBT strategies, IFBS approach and DBT frameworks as well as gratitude practice. He reflects that his attempt was driven by "I was so overwhelmed and got into my head and psyche and snapped". He feels he's no longer in that state of mind and no longer suicidal due to seeing "how much it hurt the people I love and the re alization that I have a good life". He's very motivated to work on changing his thoughts over time in therapy. Physical Exam Psychiatric Orientation: alert and oriented x 3 Apperance: appropriately dressed and appropriately groomed Eye Contact: good eye contact Motor Behavior: no abnormal motor movements Speech: normal rate/rhythm/volume of speech Affect: + constricted affect Mood: + depressed mood Thought Process: goal directed thought process Thought Content: reality based without delusions Suicidal Thoughts: denies suicidal thoughts, denies suicidal plan (but interrupted suicide attempt from using gun) and denies suicidal intent Homicidal Thoughts: denies homicidal thoughts Hallucinations: no auditory hallucinations and no visual hallucinations Cognition: recent memory grossly intact, remote memory grossly intact, attention grossly intact and language grossly intact Estimated Intelligence: consistent with education level Insight: + fair insight Judgment: + fair judgement Vital Signs (Past 24 Hours) Last Vital Signs Temp 36.5 C 05/19/25 06:24 Pulse 65 05/19/25 06:25 Resp 16 05/19/25 06:24 BP 113/73 05/19/25 06:25 Pulse Ox 98 05/18/25 19:45 O2 Del Method Room Air 05/18/25 19:45 Results & Data ([facility]) Current Inpatient Medications Current Inpatient Medications: Current Inpatient Medications Acetaminophen (Acetaminophen 325 Mg Tab) 650 mg PO Q4H PRN PRN Reason: Headache or Minor Fever Stop: 06/14/25 18:30 Al Hydrox/Mg Hydrox/Simethicone (Aluminum/Magnesium Susp 30 Ml Udc) 30 ml PO Q4H PRN PRN Reason: GI Upset Stop: 06/14/25 18:30 Bismuth Subsalicylate (Bismuth Subsalicylate 262 Mg Chew) 2 tab PO Q30M PRN PRN Reason: Loose Stool/Diarrhea Stop: 06/14/25 18:30 Bupropion HCl (Bupropion Xl 150 Mg Tabcr) 150 mg PO QAM [facility] Stop: 06/15/25 11:14 Last Admin: 05/19/25 08:51 Dose: 150 mg Clonidine HCl (Clonidine Hcl 0.1 Mg Tab) 0.1 mg PO HS BANG Stop: 06/16/25 21:59 Last Admin: 05/18/25 22:14 Dose: 0.1 mg Hydroxyzine HCl (Hydroxyzine Hcl 25 Mg Tab) 50 mg PO HSZ PRN PRN Reason: Insomnia Stop: 06/14/25 18:30 Hydroxyzine HCl (Hydroxyzine Hcl 25 Mg Tab) 25 mg PO Q4H PRN PRN Reason: Anxiety Stop: 06/14/25 18:30 Magnesium Hydroxide (Magnesium Hydroxide Susp 30 Ml Udc) 30 ml PO DAILY PRN PRN Reason: Constipation Stop: 06/14/25 18:30 Miscellaneous (Remove Nicoderm Patch) 1 each N/A DAILY@2100 [facility] Stop: 06/15/25 20:59 Last Admin: 05/18/25 21:12 Dose: Not Given Multi-Ingredient Cream (Eucerin Cr 120 Gm Jar) 1 appln EXT TID PRN PRN Reason: eczema Stop: 06/15/25 11:09 Last Admin: 05/18/25 22:44 Dose: 1 appln Nicotine (Nicotine 21 Mg/24 Hr Tdsy) [facility] Stop: 06/15/25 11:29 Last Admin: 05/19/25 08:50 Dose: Not Given Nicotine Polacrilex (Nicotine Polacrilex 2 Mg Gum) 1 piece MT Q2H PRN PRN Reason: nicotine cravings Stop: 06/15/25 11:15 Last Admin: 05/19/25 06:48 Dose: 1 piece Sodium Chloride (Sodium Chloride 0.65% Na Soln 45 Ml ([place])) 1 - 2 sprays NA PRN PRN PRN Reason: Nasal Dryness/Congestion Stop: 06/14/25 18:30 Zinc Acetate/Diphenhydramine (Diphenhydramine 2%/Zinc 0.1% Cream 28.4gm Tube) 1 appln EXT BID PRN PRN Reason: itchiness Stop: 06/15/25 11:09 Mental Health & Subst Abuse Tx Psychiatrist Name of Psychiatrist: [facility] - Intake Psychiatrist's Date Of Appointment With Psychiatric Provider: 05/26/25 Time of Appointment with Psychiatrist: 11:30 AM Psychiatric Appointment Comment: [address] [place], [place] [address] [address] Dye Range Operator Cloth Name of Dye Range Operator Cloth: [facility] - Evaluation Phone Number for Dye Range Operator Cloth: Date of Appointment with Dye Range Operator Cloth: 06/18/25 Time of Appointment with Dye Range Operator Cloth: 1040 AM Case Management Appointment Comment: [address] [place], [place] [address] [address] Post Discharge Appointments Primary Care Physician Name Of Family Doctor/PCP: Dr. Manas Rodriguez [facility] Date of Future Appointment with PCP: 05/24/25 Time of Appointment with PCP: 9:30 AM Provider Appointment Comment: De[address] [place] [id number] [id number] bring ID and Insurance
--- NOTE | 2025-05-20 08:53 | Psychiatric Progress Note ---
Date of Service May 20, 2025 Impression / Recommendations Impression JANIA POND is a 24-year-old man who currently lives in [place] with his fiance, step-child (3) and step-child's father has a history of depression, anxiety, self-harm, and was admitted on 05/15/25 18:27 on a 201 voluntary commitment for interrupted suicide attempt via gun. Diagnostically consistent with major depressive disorder with suicidal ideation following recent interrupted suicide attempt, likely borderline personality disorder and substance use involving alcohol and nicotine in the context of relationship stressors and compulsive lying behaviors and previous excessive pornography use. A: Mood improving but some increased irritability and anxiety today following medication changes. he'd like to go back on clonidine as he found this helpful for anxiety and sleep. Discussed various options and he'd like to reduce dose of Wellbutrin but continue with this given benefit for his mood and start escitalopram for depression and anxiety. Reviewed side effects including but not limited to: GI, ESTRADA, sexual side effects, and counseled on black box warning of potential for emergence of or increased SI and need to let staff know should this occur or should they feel unsafe. Also discussed importance of seeking emergency care following discharge if this side effect occurs in the future. Overall, I spent a total of 50 minutes on this case including meeting with the patient, reviewing the chart, nursing report, multidisciplinary team meeting, orders, and documentation. 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, unspecified: (4) Impulsiveness: (5) Eczema: Plan 05/20/2025: -Decrease Wellbutrin XL to 150mg daily -Discontinue trazodone -Restart clonidine 0.1mg HS -Start escitalopram 5mg daily today and increase to 10mg daily tomorrow 05/19/2025: -Increase Wellbutrin XL to 300mg tomorrow morning -Discontinue clonidine -Start trazodone 50mg HS with 50mg HS prn for insomnia 05/18/2025: -Continue current medications and tx plan 05/17/2025: -Start clonidine 0.1mg HS 05/16/2025: [facility] on q15 min checks (behavioral with suicide precautions) for safety. The patient will participate in group, recreational, and milieu therapies and will be offered additional individual and family sessions as clinically appropriate. -Start Wellbutrin 150mg daily -Provided with symptom questionnaires: PHQ, MIHIR, MDQ, Rodney BPD Inventory Assets Strengths: supportive relationships, willing to get treatment Needs: safety and stabilization, medication adjustment, additional coping skills, increased outpatient services Suicide Risk Level Suicide Risk Level: Moderate (q15 min suicide checks) (interrupted suicide attempt but mood improving, denies current SI and feels safe in the hospital and feels able to ask for support) Risk Factors Assessment Male: Yes Do You Have Access To A Gun?: No Health Problems: No Mental Health Diagnoses: Yes Substance Use Disorders: No Previous Attempt: Yes Family History of Suicide: No Previous Psychiatric Hospitalization: No Hopelessness: Yes Protective Factors Assessment Responsible for Young Children: Yes Employed: Yes Stable Relationships: Yes Supportive Family: Yes Good Rapport with Provider: Yes Interval History Identifying Information JANIA POND is a 24-year-old man who currently lives in [place] with his fiance, step-child (3) and step-child's father has a history of depression, anxiety, self-harm, and was admitted on 05/15/25 18:27 on a 201 voluntary commitment for interrupted suicide attempt via gun. Chief Complaint "I was groggy and irritated this morning". Review of Systems Sleep Information Total Hours of Sleep: 6.75 Meal Information Percent Meal Consumed - Breakfast: 100 Percent Meal Consumed - Lunch: 100 Percent Meal Consumed - Dinner: 100 Subjective Subjective Patient was seen & assessed and interval progress reviewed with nursing and social work. Attending all groups. Rated his mood as 7/10 last evening. Slept poorly overnight with trazodone, it didn't help him fall or stay asleep. Woke up feeling groggy, and then felt irritated before taking Wellbutrin. After taking the higher dose he felt more irritability and anxiety. Took prn Vistaril with some benefit. This afternoon feeling less irritable but would prefer to return to clonidine and lower dose of Wellbutrin. Continues to deny SI. Processes that he knows he has some big stressors with new legal issues and finances from no longer having his job but he feels prepared to cope with these. Physical Exam Psychiatric Orientation: alert and oriented x 3 Apperance: appropriately dressed and appropriately groomed Eye Contact: good eye contact Motor Behavior: no abnormal motor movements Speech: normal rate/rhythm/volume of speech Affect: + anxious affect Mood: + anxious mood Thought Process: goal directed thought process Thought Content: reality based without delusions Suicidal Thoughts: denies suicidal thoughts, denies suicidal plan and denies suicidal intent Homicidal Thoughts: denies homicidal thoughts Hallucinations: no auditory hallucinations and no visual hallucinations Cognition: recent memory grossly intact, remote memory grossly intact, attention grossly intact and language grossly intact Estimated Intelligence: consistent with education level Insight: + fair insight Judgment: + fair judgement Vital Signs (Past 24 Hours) Last Vital Signs Temp 36.4 C L 05/20/25 06:59 Pulse 61 05/20/25 06:59 Resp 18 05/20/25 06:59 BP 110/77 05/20/25 07:00 Pulse Ox 99 05/20/25 06:59 O2 Del Method Room Air 05/20/25 06:59 Results & Data ([facility]) Current Inpatient Medications Current Inpatient Medications: Current Inpatient Medications Acetaminophen (Acetaminophen 325 Mg Tab) 650 mg PO Q4H PRN PRN Reason: Headache or Minor Fever Stop: 06/14/25 18:30 Al Hydrox/Mg Hydrox/Simethicone (Aluminum/Magnesium Susp 30 Ml Udc) 30 ml PO Q4H PRN PRN Reason: GI Upset Stop: 06/14/25 18:30 Bismuth Subsalicylate (Bismuth Subsalicylate 262 Mg Chew) 2 tab PO Q30M PRN PRN Reason: Loose Stool/Diarrhea Stop: 06/14/25 18:30 Bupropion HCl (Bupropion Xl 300 Mg Tabcr) 300 mg PO QAM BANG Stop: 06/19/25 08:59 Hydroxyzine HCl (Hydroxyzine Hcl 25 Mg Tab) 50 mg PO HSZ PRN PRN Reason: Insomnia Stop: 06/14/25 18:30 Hydroxyzine HCl (Hydroxyzine Hcl 25 Mg Tab) 25 mg PO Q4H PRN PRN Reason: Anxiety Stop: 06/14/25 18:30 Magnesium Hydroxide (Magnesium Hydroxide Susp 30 Ml Udc) 30 ml PO DAILY PRN PRN Reason: Constipation Stop: 06/14/25 18:30 Miscellaneous (Remove Nicoderm Patch) 1 each N/A DAILY@2100 BANG Stop: 06/15/25 20:59 Last Admin: 05/19/25 22:44 Dose: Not Given Multi-Ingredient Cream (Eucerin Cr 120 Gm Jar) 1 appln EXT TID PRN PRN Reason: eczema Stop: 06/15/25 11:09 Last Admin: 05/18/25 22:44 Dose: 1 appln Nicotine (Nicotine 21 Mg/24 Hr Tdsy) 1 patch TD QAM BANG Stop: 06/15/25 11:29 Last Admin: 05/19/25 08:50 Dose: Not Given Nicotine Polacrilex (Nicotine Polacrilex 2 Mg Gum) 1 piece MT Q2H PRN PRN Reason: nicotine cravings Stop: 06/15/25 11:15 Last Admin: 05/19/25 06:48 Dose: 1 piece Sodium Chloride (Sodium Chloride 0.65% Na Soln 45 Ml ([place])) 1 - 2 sprays NA P RN PRN PRN Reason: Nasal Dryness/Congestion Stop: 06/14/25 18:30 Trazodone HCl (Trazodone Hcl 50 Mg Tab) 50 mg PO HS BANG Stop: 06/18/25 21:59 Last Admin: 05/19/25 22:46 Dose: 50 mg Trazodone HCl (Trazodone Hcl 50 Mg Tab) 50 mg PO HS PRN PRN Reason: insomnia Stop: 06/18/25 21:59 Zinc Acetate/Diphenhydramine (Diphenhydramine 2%/Zinc 0.1% Cream 28.4gm Tube) 1 appln EXT BID PRN PRN Reason: itchiness Stop: 06/15/25 11:09 Mental Health & Subst Abuse Tx Psychiatrist Name of Psychiatrist: [facility] - Intake and Evaluation ([address], [place]) Psychiatrist's Date Of Appointment With Psychiatric Provider: 05/26/25 11:30AM Time of Appointment with Psychiatrist: 06/18/25 10:40am Psychiatric Appointment Comment: Intake for psychiatry on 05/26 1130am, appt with psychiatry on 06/18 1040 Therapist Name of Therapist: [facility] - [address] [place] [id number] Therapist's Date of Therapist Appointment: 05/27/25 Time of Therapist Appointment: 1630 Therapist Release of Information: Obtained Senior International Tax Manager Name of Senior International Tax Manager: Asaf Rebolledo - [address] [facility] [place] [address] Phone Number for Senior International Tax Manager: Date of Appointment with Senior International Tax Manager: 06/18/25 Time of Appointment with Senior International Tax Manager: 1040 AM Case Management Appointment Comment: Added to waitlist, they will contact you directly when CM is available Post Discharge Appointments Primary Care Physician Name Of Family Doctor/PCP: Dr. Manas Rodriguez [facility] Date of Future Appointment with PCP: 05/24/25 Time of Appointment with PCP: 9:30 AM Provider Appointment Comment: [address] [place] [address] [place] [address] bring ID and Insurance Contact Information Discharge Discharge Address: [address] [place] [phone]
[2025-05-20] MEDS: ESCITALOPRAM OXALATE 10 MG TAB PO ONE (16:23)
[2025-05-21] MEDS: ESCITALOPRAM OXALATE 10 MG TAB PO SCH (08:29)
--- NOTE | 2025-05-21 08:56 | Discharge Summary ---
Date of Service May 21, 2025 History of Present Illness Eddie presents for psychiatric admission for worsening depression and interrupted suicide attempt of shooting himself with a gun in the context of multiple psychosocial stressors including relationship and financial issues. He drove to his grandmothers home to gain access to guns and discharged the gun to ensure it was working before placing it in his mouth. His grandmother found him with the gun in his mouth and called police. He was initially taken by police to detention due to endangerment of others from setting off the gun before attempting to use it on himself. He was then brought from detention to the hospital for further evaluation of his suicidality. He reports struggling with mood fluctuations throughout his life describing periods where he feels "15 out of 10 happy" and "perfect" followed by crashes where he becomes "really low". These mood shifts can occur within the same day and are often triggered by external events particularly relationship conflicts. 2 days prior to admission Eddie experienced a significant low mood following ongoing relationship problems with his fiangelic. He describes feeling "numb" the morning of the incident of the interrupted attempt and has limited memory of the events recalling only "flashes" of driving to his grandmother's house. He recalls "I had gotten into a pretty low place". He notes it's all "a bit of a blur" and "the only thing I vividly remember is loading the gun". He vividly remembers loading a gun and was found by his grandmother with a gun in his mouth. He denies that alcohol contributed to his memory gaps noting he had consumed 3 tallboy beers the night before but it had been 9 hours without drinking before the incident occurred. Eddie reports significant relationship to stress as the primary precipitant to this crisis. He describes lying to his fiangelic about his past, including previous relationships and sexual encounters, as well as struggling with what he characterizes as a "very bad porn addiction" in the past prior to starting his relationship with her. He expresses genuine love for his fiangelic and her 3-year-old child but reports constant worry that she will leave him. He describes himself as a "compulsive" or "pathological liar" and acknowledges having "misconstrued understanding" of healthy sexual relationships due to his past pornography use. He notes "I've been making poor decisions" in regards to his relationship and he states he'd lied about things in his past before they started dating. When she caught him in these lies he "spiraled". He deeply loves his partner and yet "I wanted to be with her so bad I didn't want her to know about everything in my past". He wants to have a healthy relationship but often gets caught up in worries that she'll leave him. 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 He is also now acquired felony charges including operation of a firearm in unoccupied residence, reckless endangerment due to setting off the gun and criminal mischief from breaking into his grandmother's gun safe. He notes he his fiance and her child were already struggling before this crisis and he suspects now will be worse. This does cause some hopelessness and helplessness but he wants to continue living and to move forward. He acknowledges feeling overwhelmed by his current circumstances. He identifies target symptoms as: working on his "compulsive liar, pathological liar" and "very bad issues with lying" and "spin a story that's better for me", that's something he wants to work on and improve for the sake of his relationship and "I want to figure out what my problems are with sex and the idea of it" and "what's wrong with my brain, I struggle with it a lot, the self- doubt, that spirals pretty bad". He has periods of depression but it's pretty "moment to moment" in terms of his mood. He's always struggled to wake up in the morning and has always struggled w ith sleep. He can fall asleep easily but always feels exhausted when he wakes up. He notes "I don't want to be right now but I've also come to realize what I've done and I know the process that it's going to be and it's a hard pill to swallow". He is not currently prescribed any psychiatric medications. 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 No history or current history psychosis, PTSD, OCD. History of restrictive eating in the past, self-harm via punching himself in highschool-last about 5 years ago. Previous struggled with porn addiction. Physical Exam Vital Signs (Past 24 Hours) Last Vital Signs Temp 36.6 C 05/21/25 06:33 Pulse 69 05/21/25 06:33 Resp 18 05/21/25 06:33 BP 109/71 05/21/25 06:33 Pulse Ox 98 05/21/25 06:33 O2 Del Method Room Air 05/21/25 06:33 Principal Diagnosis Major Depressive Disorder Psychiatric Data See daily stay summary. In short, patient was engaged with the social/therapeutic milieu of the unit, safety was maintained and the patient was cooperative with care. Medication changes included initiation of clonidine off- label for sleep and anxiety, escitalopram for depression/anxiety and Wellbutrin for depression and they tolerated this well. A support session was held and safety plan was completed prior to discharge. They participated in safety planning and in discussions about ways to seek support and recognizing warning signs and utilizing coping skills. Reviewed ways to have their safety plan and contacts easily available should thoughts of SI re-emerge in the future. Reviewed importance of seeking emergency care should SI intensify, worsen or should they feel unsafe in the future which they agree to do. On the day of discharge they stated their mood was "good" and remained future-oriented including spending time with his step-child and fiance, being outside and engaging in aftercare appointments for psychiatry, therapy and case management. Day of Discharge Assessment Today the patient voices readiness for discharge. They note improvement in mood and anxiety. They deny thoughts of harm to self or others. Thoughts are organized and they are clinically improved from admission. There is no evidence of psychosis. They improved in the hospital with support and medication adjustments. They agree to take medications as prescribed and keep follow-up appointments. At the time of the discharge they are deemed to be stable and appropriate for outpatient level of care. They are not deemed to be at imminent risk of harm to self or others. They are aware of emergency and crisis services. Knows to call 911 or go to nearest emergency care center if in a crisis which cannot be handled as an outpatient. Suicide risk assessment: Acute risk is low given improvement in mood and denial of SI, lack of access to lethal means, improvement in sleep, hopefulness. Chronic risk is moderate to high given some non-modifiable risk factors: psychiatric co-morbid diagnoses, periods of impulsivity, prior near attempt, hx self-harm, emotional reactivity, cluster B personality disorder but also with protective factors including good social support, sense of responsibility to family and social supports, outpatient care in place, positive coping skills, positive problem solving, willingness to engage with treatment and self-observation. Counseled on ways to reduce acute and chronic risk including engaging with outpatient providers, using safety plan if needed, utilizing supports, taking medication, and using coping skills. Modifiable risk factors of SI and depression were addressed during hospitalization through development of new coping skills, support meeting, safety planning, and medication adjustments. Discharge physical exam: See admission H&P, MSE per above and day of discharge summary. Overall, I spent a total of 35 minutes on this case including meeting with the patient, reviewing the chart, nursing report, multidisciplinary team meeting, discharge orders, anticipatory planning, safety planning, risk assessment and documentation. Transition of Care Transition Of Care Record: was reviewed with the patient Advance Directives Advance Directives Information Provided: Yes Advance Directives: No Mental Health Advance Directive: No Advance Directives on File: No Living Will: No Power of [employer] Administrator: No Advance Directives Reason:: Declines as Mental Health Visit. Suicide Risk Level Suicide Risk Level Comments: see assessment above Risk Factors Assessment Male: Yes Do You Have Access To A Gun?: No Health Problems: No Mental Health Diagnoses: Yes Substance Use Disorders: No Previous Attempt: Yes Family History of Suicide: No Previous Psychiatric Hospitalization: No Hopelessness: No Protective Factors Assessment Responsible for Young Children: Yes Employed: Yes Stable Relationships: Yes Supportive Family: Yes Good Rapport with Provider: Yes Discharge Data Lab Results 05/15/25 05/15/25 05/15/25 12:02 12:07 14:22 WBC 9.28 RBC 5.99 Hgb 18.1 H Hct 54.5 H MCV 91.0 MCH 30.2 MCHC 33.2 RDW Std Deviation 45.3 RDW Coeff of Yessy 13.7 Plt Count 397 MPV 9.8 Immature Gran % (Auto) 0.3 Neut % (Auto) 73.0 Lymph % (Auto) 17.3 [place] % (Auto) 6.1 Eos % (Auto) 2.4 Baso % (Auto) 0.9 Neut # (Auto) 6.77 H Lymph # (Auto) 1.61 [place] # (Auto) 0.57 Eos # (Auto) 0.22 Baso # (Auto) 0.08 Immature Gran # (Auto) 0.03 Sodium 140 Potassium 4.3 Chloride 105 Carbon Dioxide 29 Anion Gap 6 BUN 12 Creatinine 0.91 Est Cr Clr Drug Dosing 136.6 eGFR 121.45 BUN/Creatinine Ratio 13.2 Glucose 91 Calcium 9.7 Total Bilirubin 0.6 AST 17 ALT 16 Alkaline Phosphatase 74 Total Protein 8.1 Albumin 5.1 H Globulin 3.0 Albumin/Globulin Ratio 1.7 TSH 0.933 Urine Color Yellow Urine Appearance Clear Urine pH 5.5 Ur Specific [place] 1.005 Urine Protein Negative Urine Glucose (UA) Negative Urine Ketones Negative Urine Blood Negative Urine Nitrite Negative Urine Bilirubin Negative Urine Urobilinogen Negative Ur Leukocyte Esterase Negative Urine Comment Salicylates < 3.0 L Urine Opiates Screen Neg Ur Methadone, Qual Neg Urine Fentanyl Screen Neg Acetaminophen < 3 L Urine Barbiturates Neg Ur Phencyclidine (PCP) Neg U Amphetamin/Meth Scrn Neg MDMA (Ecstasy) Screen Neg U Benzodiazepines Scrn Neg Ur Cocaine Metabolite Neg U Marijuana (THC) Screen Neg Ethyl Alcohol mg/dL < 10.0 SARS-CoV-2, RNA, NAAT NEGATIVE Hospital Course 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, unspecified: (4) Impulsiveness: (5) Eczema: (6) Major depressive disorder with current active episode: Plan 05/21/2025: -Slept well and no anxiety or irritability today with switch back to clonidine and lower dose of Wellbutrin -he feels safe and desires discharge today, feels ready to go 05/20/2025: -Decrease Wellbutrin XL to 150mg daily -Discontinue trazodone -Restart clonidine 0.1mg HS -Start escitalopram 5mg daily today and increase to 10mg daily tomorrow 05/19/2025: -Increase Wellbutrin XL to 300mg tomorrow morning -Discontinue clonidine -Start trazodone 50mg HS with 50mg HS prn for insomnia 05/18/2025: -Continue current medications and tx plan 05/17/2025: -Start clonidine 0.1mg HS 05/16/2025: The patient was [facility] mental [facility] unit) on q15 min checks (behavioral with suicide precautions) for safety. The patient will participate in group, recreational, and milieu therapies and will be offered additional individual and family sessions as clinically appropriate. -Start Wellbutrin 150mg daily -Provided with symptom questionnaires: PHQ, MIHIR, MDQ, Rodney BPD Mental Health & Subst Abuse Tx Psychiatrist Name of Psychiatrist: Asaf Rebol[facility] - Intake and Evaluation ([address] [place] [address]) Psychiatrist's Date Of Appointment With Psychiatric Provider: 05/26/25 11:30AM Time of Appointment with Psychiatrist: 06/18/25 10:40am Psychiatric Appointment Comment: Intake for psychiatry on 05/26 1130am, appt with psychiatry on 06/18 1040 Therapist Name of Therapist: [facility] - [address] [place] [id number] Therapist's Date of Therapist Appointment: 05/27/25 Time of Therapist Appointment: 4:30PM Therapist Release of Information: Obtained Frit Coater Name of Frit Coater: [facility] - [address] [place] [id number] Phone Number for Frit Coater: Date of Appointment with Frit Coater: 06/18/25 Time of Appointment with Frit Coater: 1040 AM Case Management Appointment Comment: Added to waitlist, they will contact you directly when CM is available Post Discharge Appointments Primary Care Physician Name Of Family Doctor/PCP: Dr. [facility] Date of Future Appointment with PCP: 05/24/25 Time of Appointment with PCP: 9:30 AM Provider Appointment Comment: [address] [place] [id number] bring ID and Insurance Contact Information Discharge Discharge Address: [address] [place] [id number] Discharge Plan Discharge Items Patient Disposition: Home - Self-Care Reason For Visit: UNSPECIFIED DEPRESSIVE DISORDER Discharge Diagnosis: Major Depressive Disorder Condition on Discharge: Good Activity: Resume your previous activity Non-emergency contact: Primary Care Provider, Psychiatrist, Therapist and Pals Nurse Call non-emergency contact if: you have any medication questions and your symptoms worsen Follow-up/Referrals: PCP,NO [Primary Care Provider] - Diet: Regular Addtl Attending Provider Instructions: Optional mobile apps we discussed: -Suicide safety plan -Virtual Hope Box SPECIAL CARE INSTRUCTIONS: 1. Follow through with your scheduled aftercare appointments. If unable to keep an appointment, please call to reschedule. 2. Take your medication only as prescribed. Medication should not be changed or stopped without the approval of your doctor. In the event of worsening symptoms or concerns about side effects, contact your doctor immediately. 3. Utilize new healthy coping skills, anger management skills, and stress management skills learned during your hospitalization. Journal feelings and process them with a support person. Identify stressors or situations that may result in relapse, deterioration or inappropriate behaviors and develop a plan to deal with those issues. 4. If your coping skills are ineffective and you are in crisis, contact your outpatient providers for direction. If unable to reach your providers, please call the [facility] CRISIS LINE AT , go to the [facility] walk-in center at [address] [place] [address] [facility], or go to the closest Emergency Room. 5. Avoid alcohol and un-prescribed drugs. 6. You have been provided with the Mental Health Advance Directives Pamphlet for your review. 7. Your condition is stable for discharge to outpatient level of care, but recovery is an ongoing process. Ifthoughts to harm yourself or others return, follow the safety plan developed during your stay. Planning for a safe return home includes securing weapons. Our treatment team recommends weaponsbe removed from the home until your outpatient provider reassesses your progress. In rare cases where the items themselvescannot be removed, guns and ammunitionshould be secured separatelyand keys stored by a reliable personoutside of the home. If you were admitted on an involuntary commitment, the police or other legal authorities may be involved in this process. AFTERCARE APPOINTMENTS: * Please call your insurance company prior to your scheduled appointment to confirm your aftercare providers are covered. Take your insurance information to your appointments. WHO TO CALL AND WHEN: Medical Emergencies: For questions or emergencies related to your hospital stay, please contact the Inpatient Behavioral Health Unit at [phone]. A woodwind reeds cutter is on-call 25/02 for the Behavioral Health Unit for emergencies At any time you feel your situation is an emergency, you may also call 911 immediately. National Crisis Hotline: 988 Pending Studies at Discharge: No Stand-Alone Forms: My [facility], Smoking Cessation Medications and DC Order Prescriptions: New clonidine HCl 0.1 mg Tablet 0.1 mg PO HS 30 Days Qty: 30 0RF hydroxyzine HCl 25 mg Tablet 25 mg PO DAILY PRN (Reason: anxiety/insomnia) 30 Days Qty: 30 0RF escitalopram oxalate 10 mg Tablet 10 mg PO QAM 30 Days Qty: 30 0RF bupropion HCl 150 mg Tablet Extended Release 24 Hr 150 mg PO QAM 30 Days Qty: 30 0RF Discharge Orders: Discharge Order (Routine); Ordered 05/21/25 Ordered By: Mariah Vera Admission Data Admit Date/Time: 05/15/25 18:27 Attending Provider: Mariah Vera Admit Provider: Mariah Vera Primary Care Provider: PCP,NO Other Interventions: Discharge Summary Assessment (RN) Last Done: 05/21/25 10:25 Coding Level of Care Code 03716 D/C day mgmt > 30 min Diagnoses Depression with suicidal ideation F32.A; R45.851 Borderline personality disorder F60.3 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
== END 2025-05-21 10:55 | disposition home or self-care (01) | DRG 881 ==
LOC: ED 11:46 → 3S 18:13
DX: F17.290 Nicotine dependence, other tobacco product, uncomplicated; F60.3 Borderline personality disorder; F10.90 Alcohol use, unspecified, uncomplicated; R45.851 Suicidal ideations; G47.9 Sleep disorder, unspecified; F32.9 Major depressive disorder, single episode, unspecified; Z81.8 Family history of other mental and behavioral disorders; L30.9 Dermatitis, unspecified